=== PATIENT | male | born 1950 | race Caucasian/White ===

== ENCOUNTER → 2016-07-22 | Outpatient (CLI) | payer OTHER | LOC: FIMAGING 10:19 | DX: Z13.6 Encounter for screening for cardiovascular disorders (principal); Z82.49 Family history of ischemic heart disease and other diseases of the circulatory system; I70.90 Unspecified atherosclerosis ==

== ENCOUNTER → 2016-08-10 | Outpatient (CLI) | payer OTHER ==
[~2016-08-10] MED LIST: IOPAMIDOL (ISOVUE 370) 100 ML BTL IV ONE
== END ==
LOC: FIMAGING 07:45
PROVIDERS: ATTEND Internal Medicine Cardiovascular Disease
DX: I25.10 Atherosclerotic heart disease of native coronary artery without angina pectoris (principal); R94.31 Abnormal electrocardiogram [ECG] [EKG]; I10 Essential (primary) hypertension; E78.5 Hyperlipidemia, unspecified; Z87.891 Personal history of nicotine dependence; Z85.828 Personal history of other malignant neoplasm of skin
CPT/HCPCS: Q9967

== ENCOUNTER 2017-05-04 03:53 | Emergency (ER) | payer OTHER, MEDICARE ==
[2017-05-04 03:59] VITALS: RESP 16; TEMP 97.9
--- NOTE | 2017-05-04 04:04 | EDPHY ---
H & P Stated Complaint: lower back pain -history of HPI/ROS: HPI CHIEF COMPLAINT: Back pain HISTORY OF PRESENT ILLNESS: Patient very pleasant 67-year-old male, he has a history of chronic back pain in which she is followed by Eliu Conroy, he states earlier in April he had an injection of his back to help with sciatica type pain. This worked very well for him. He then went to [email or web address] and cross[place] country skiing and hiking, and recently arrived back to [place] few days ago he was unloading his car. He states for the past 2 days he has had increasing low back pain he thinks he may have injured his back further. He states this feels exactly like muscle spasm like he had last time and did really well with muscle relaxants. He denies any bowel or bladder incontinence or retention he denies any saddle anesthesia, denies any fever, denies direct trauma to his back. His pain is located in his lumbar region midline and radiates out bilaterally across his low back. Does not go down his legs. He denies any leg weakness. He has a normal gait. Past Medical History: Hypertension and coronary artery disease, chronic back pain Past Surgical History: No recent surgery. Social History: Denies drugs alcohol tobacco. Family History: Noncontributory. ROS REVIEW OF SYSTEMS: A comprehensive 10 point review of systems is otherwise negative aside from elements mentioned in the history of present illness. Exam Constitutional appears well nontoxic triage nursing summary reviewed, vital signs reviewed, awake/alert. Eyes normal conjunctivae and sclera, EOMI, PERRLA. HENT normal inspection, atraumatic, moist mucus membranes, no epistaxis, neck supple/ no meningismus, no raccoon eyes. Respiratory clear to auscultation bilaterally, normal breath sounds, no respiratory distress, no wheezing. Cardiovascular rate normal, regular rhythm, no murmur, no edema, distal pulses normal. Gastrointestinal soft, non-tender, no rebound, no guarding, normal bowel sounds, no distension, no pulsatile mass. Genitourinary no CVA tenderness. Musculoskeletal no significant tenderness on exam,, full range of motion, no calf swelling, no tenderness of extremities, no meningismus, good pulses, neurovascularly intact. Skin pink, warm, & dry, no rash, skin atraumatic. Neurologic awake, alert and oriented x 3, AAOx3, moves all 4 extremities equally, motor intact, sensory intact, CN II-XII intact, normal cerebellar, normal vision, normal speech. No leg weakness. Psychiatric normal mood/affect. Heme/Lymph/Immune no lymphadenopathy. Differential Diagnosis: Includes but is not limited to in a particular order, lumbar compression fracture, disc disease, degenerative joint disease, annular tear, disc herniation, nerve root compression, no signs of cauda equina Medical Decision Making: Plan for this patient IV establishment with IV fentanyl for pain control as well as IV Valium for muscle spasm. Re-evaluation: 0450: Patient resting comfortably no acute distress. Re-examination and fentanyl Valium he is feeling slightly better. Blood work has been reviewed is reassuring. I have additionally ordered him a L of fluid to hydrate him, and 15 mg IV Toradol see if this greatly improved his discomfort. And hopefully we can get him home with adequate pain control. 0602: Re-examination at this time patient resting comfortably. He did ambulate and had 5/10 back pain. I have ordered him another dose of IV fentanyl sent for mcg in 2.5 mg IV Valium. 0644: Re-examination. Patient resting comfortably no acute distress. Feels much better after IV meds. He would like to go home. He ambulated well throughout the emergency room without difficulty. Source: Patient - Personal History Current Tetanus/Diphtheria Vaccine: Yes Current Tetanus Diphtheria and Acellular Pertussis (TDAP): Yes - Medical/Surgical History Hx Asthma: No Hx Chronic Respiratory Disease: No Hx Diabetes: No Hx Cardiac Disease: No Hx Renal Disease: No Hx Cirrhosis: No Hx Alcoholism: No Hx HIV/AIDS: No Hx Splenectomy or Spleen Trauma: No Other PMH: back pain, HTN, high cholestrol - Social History Smoking Status: Former smoker Constitutional: Initial Vital Signs Temperature (C) 36.6 C 05/04/17 03:56 Heart Rate 77 05/04/17 03:56 Respiratory Rate 16 05/04/17 03:56 Blood Pressure 143/89 H 05/04/17 03:56 O2 Sat (%) 94 05/04/17 03:56 O2 Delivery Mode Room Air Allergies/Adverse Reactions: No Known Allergies Allergy (Unverified 05/04/17 03:59) Home Medications: Medication Instructions Recorded Aspirin 05/04/17 BENAZEPRIL HCL 05/04/17 Diazepam [Valium 5 MG (*)] 5 mg PO TID PRN #10 tab 05/04/17 Diazepam [Valium 5 MG (*)] 5 mg PO TID PRN #20 tab 05/04/17 Fish Oil 1,000 mg Capsule 05/04/17 Glucosamine 05/04/17 Hydrocodone/APAP 5/325 [[place] 1 - 2 tab PO Q4H PRN #10 tab 05/04/17 5/325] Hydrocodone/APAP 5/325 [[place] 1 - 2 tab PO Q4H PRN #20 tab 05/04/17 5/325] Ibuprofen [Motrin (*)] 800 mg PO Q6-8PRN #10 tab 05/04/17 Ibuprofen [Motrin (*)] 800 mg PO Q6-8PRN #20 tab 05/04/17 SIMVASTATIN 05/04/17 [place] 05/04/17 Vit D3/Folic Acid/B2/B6/B12 05/04/17 buPROPion 05/04/17 Medical Decision Making - Data Points Laboratory Results: Laboratory Results 05/04/17 04:20 05/04/17 04:20 05/04/17 05/04/17 04:20 04:20 WBC 6.03 10^3/uL 10^3/uL (3.80-9.50) RBC 5.25 10^6/uL 10^6/uL (4.40-6.38) Hgb 15.7 g/dL g/dL (13.7-17.5) Hct 45.5 % % (40.0-51.0) MCV 86.7 fL fL (81.5-99.8) MCH 29.9 pg pg (27.9-34.1) MCHC 34.5 g/dL g/dL (32.4-36.7) RDW 12.5 % % (11.5-15.2) Plt Count 247 10^3/uL 10^3/uL (150-400) MPV 10.0 fL fL (8.7-11.7) Neut % (Auto) 41.3 % % (39.3-74.2) Lymph % (Auto) 38.3 % % (15.0-45.0) [place] % (Auto) 12.9 % % (4.5-13.0) Eos % (Auto) 5.6 % % (0.6-7.6) Baso % (Auto) 1.7 % % (0.3-1.7) Nucleat RBC Rel Count 0.0 % % (0.0-0.2) Absolute Neuts (auto) 2.49 10^3/uL 10^3/uL (1.70-6.50) Absolute Lymphs (auto) 2.31 10^3/uL 10^3/uL (1.00-3.00) Absolute Monos (auto) 0.78 10^3/uL 10^3/uL (0.30-0.80) Absolute Eos (auto) 0.34 10^3/uL 10^3/uL (0.03-0.40) Absolute Basos (auto) 0.10 10^3/uL 10^3/uL (0.02-0.10) Absolute Nucleated RBC 0.00 10^3/uL 10^3/uL (0-0.01) Immature Gran % 0.2 % % (0.0-1.1) Immature Gran # 0.01 10^3/uL 10^3/uL (0.00-0.10) Sodium 143 mEq/L mEq/L (134-144) Potassium 4.2 mEq/L mEq/L (3.5-5.2) Chloride 106 mEq/L mEq/L (97-110) Carbon Dioxide 22 mEq/l mEq/l (22-31) Anion Gap 15 mEq/L mEq/L (8-16) BUN 24 mg/dL H mg/dL (7-23) Creatinine 1.2 mg/dL mg/dL (0.7-1.3) Estimated GFR > 60 Glucose 120 mg/dL H mg/dL (70-100) Calcium 9.9 mg/dL mg/dL (8.5-10.4) Medications Given: Discontinued Medications Diazepam (Valium Injection) 2.5 mg IVP EDNOW ONE Stop: 05/04/17 04:14 Last Admin: 05/04/17 04:23 Dose: 2.5 mg Diazepam (Valium Injection) 2.5 mg IVP EDNOW ONE Stop: 05/04/17 05:48 Last Admin: 05/04/17 06:12 Dose: 2.5 mg Fentanyl (Sublimaze) 50 mcg IVP EDNOW ONE Stop: 05/04/17 04:14 Last Admin: 05/04/17 04:23 Dose: 50 mcg Fentanyl (Sublimaze) 75 mcg IVP EDNOW ONE Stop: 05/04/17 05:48 Last Admin: 05/04/17 06:05 Dose: 75 mcg Sodium Chloride (Ns) 1,000 mls @ 0 mls/hr IV ONCE ONE PRN Reason: Wide Open Stop: 05/04/17 04:50 Last Admin: 05/04/17 04:59 Dose: 1,000 mls Ketorolac Tromethamine (Toradol) 15 mg IVP EDNOW ONE Stop: 05/04/17 04:50 Last Admin: 05/04/17 05:00 Dose: 15 mg Departure - Departure Disposition: Home, Routine, Self-Care Clinical Impression: Back pain Qualifiers: Back pain location: low back pain Chronicity: acute Back pain laterality: midline Sciatica presence: without sciatica Qualified Code(s): M54.5 - Low back pain Condition: Good Instructions: Low Back Strain (ED), Acute Low Back Pain (ED), Back Pain (ED) Additional Instructions: 1. Take it easy over the next few days. 2. Return emergency room if you have worsening back pain 3. Anti-inflammatories for mild pain 4. For severe pain you may take [place] but do not drive while taking this. 5. Valium for muscle spasm. Do not drive while taking this medication. Referrals: Sameera Heath MD [Primary Care Provider] - As per Instructions Prescriptions: Diazepam [Valium 5 MG (*)] 5 mg PO TID PRN #10 tab PRN Reason: Spasms Diazepam [Valium 5 MG (*)] 5 mg PO TID PRN #20 tab PRN Reason: Spasms Hydrocodone/APAP 5/325 [[place] 5/325] 1 - 2 tab PO Q4H PRN #10 tab PRN Reason: Pain, Moderate Hydrocodone/APAP 5/325 [[place] 5/325] 1 - 2 tab PO Q4H PRN #20 tab PRN Reason: Pain, Moderate Ibuprofen [Motrin (*)] 800 mg PO Q6-8PRN #10 tab Ibuprofen [Motrin (*)] 800 mg PO Q6-8PRN #20 tab
[2017-05-04] MEDS ORDERED: fentaNYL 100 MCG/2 ML INJ IVP ONE ×2 (04:13→05:47)
[2017-05-04] MEDS ORDERED: DIAZEPAM 10 MG/2 ML SYR IVP ONE ×2 (04:13→05:47)
[2017-05-04 04:34] LABS: PLATELET COUNT 247 10^3/uL (150-400)
[2017-05-04] MEDS ORDERED: KETOROLAC 15 MG/1 ML SDV IVP ONE (04:49)
[2017-05-04] MEDS ORDERED: NS 1,000 ML IV ONE (04:49)
[2017-05-04] MEDS ORDERED: DIAZEPAM 10 MG/2 ML SYR ONE (06:04)
[2017-05-04 07:04] VITALS: BP 122/67; PULSE 61; O2SAT 93
== END 2017-05-04 07:04 | disposition home or self-care (01) ==
DX: M54.5 Low back pain (principal); I10 Essential (primary) hypertension; I25.10 Atherosclerotic heart disease of native coronary artery without angina pectoris; Z79.82 Long term (current) use of aspirin; Z87.891 Personal history of nicotine dependence
CPT/HCPCS: 96361; 96374; 96375; 96376; 99284; J1885; J3010

== ENCOUNTER → 2017-11-16 | Outpatient (CLI) | payer OTHER | LOC: FIMAGING 08:03 | DX: I25.10 Atherosclerotic heart disease of native coronary artery without angina pectoris (principal); I10 Essential (primary) hypertension; Z79.82 Long term (current) use of aspirin; Z79.899 Other long term (current) drug therapy ==